=== PATIENT | female | born 1945 | race Caucasian/White ===

== ENCOUNTER 2016-06-27 09:22 | Day surgery (SDC) | payer MEDICARE ==
[2016-06-27] MEDS ORDERED: LACTATED RINGERS 1,000 ML IV ONE (10:07)
[2016-06-27] MEDS ORDERED: fentaNYL 250 MCG/5 ML VIAL IVP ONE (11:00)
[2016-06-27] MEDS ORDERED: MIDAZOLAM 2 MG/2 ML VIAL IVP ONE (11:00)
== END 2016-06-27 09:23 | disposition home or self-care (01) ==
PROC: 0DBP8ZZ Excision of Rectum, Via Natural or Artificial Opening Endoscopic (ICD-10-PCS; principal; 2016-06-27 10:30)
DX: Z12.11 Encounter for screening for malignant neoplasm of colon (principal); K62.1 Rectal polyp; K21.9 Gastro-esophageal reflux disease without esophagitis; I10 Essential (primary) hypertension
CPT/HCPCS: 45380; J3010; J7120

== ENCOUNTER 2018-09-09 09:03 | Outpatient (CLI) | payer MEDICARE ==
--- NOTE | 2018-09-09 11:00 | Mammography Report ---
Reason: SCREENING MAMMO Procedure Date: 09/09/2018 Accession Number: [id number] / [id number] Procedure: MGN - Screening Mammo Dig Bilat CPT Code: FULL RESULT: EXAM: Screening Mammo Dig Bilat DATE: 09/09/2018 9:33 AM CLINICAL HISTORY: TECHNIQUE: (B) - Bilateral CC and MLO views were obtained. COMPARISON: 02/29/2016, 08/26/2012 PARENCHYMAL PATTERN: (A) - The breasts demonstrate scattered fibroglandular densities bilaterally. FINDINGS: There is a left breast asymmetry, lateral hemisphere in middle one third, seen only on CC view. No focal abnormality in the right breast. IMPRESSION: Incomplete examination. BI-RADS category 0. RECOMMENDATION: (ADDMAM) - Recommend additional mammographic views. In addition, unilateral left breast ultrasound is recommended. BI-RADS CATEGORY: (0) - Incomplete Examination - need additional evaluation. STANDARD QUALIFYING STATEMENTS: 1. This examination was reviewed with the aid of Computer-Aided Detection (CAD). 2. A negative or benign imaging report should not preclude biopsy if clinically suspicious findings are present. 3. Dense breasts may obscure an underlying neoplasm. 4. This examination was reviewed without the aid of 3D breast imaging (tomosynthesis).
== END 2018-09-09 09:04 | disposition home or self-care (01) ==
LOC: DI.N 09:03
DX: Z12.31 Encounter for screening mammogram for malignant neoplasm of breast (principal); R92.8 Other abnormal and inconclusive findings on diagnostic imaging of breast
CPT/HCPCS: 77067

== ENCOUNTER 2018-09-17 10:28 | Outpatient (CLI) | payer MEDICARE ==
--- NOTE | 2018-09-17 13:21 | Mammography Report ---
Reason: ABNORMAL MAMMOGRAM Procedure Date: 09/17/2018 Accession Number: [id number] / [id number] Procedure: TODD - Diag Special Views Dig LT CPT Code: FULL RESULT: EXAM: Diag Special Views Dig LT DATE: 09/17/2018 10:57 AM CLINICAL HISTORY: Diagnostic examination. The patient is recalled from screening for a left breast asymmetry. TECHNIQUE: (L) - Left CC, laterally exaggerated CC, ML views were obtained. COMPARISON: 09/09/2018 through 08/15/2011. PARENCHYMAL PATTERN: (A) - The breast(s) demonstrate(s) scattered fibroglandular densities. FINDINGS: The previously seen asymmetry persists with suggestion of a isodense irregular mass on 3-D image 31 on the cc projection and 3-D image 28 on the MLO projection. Focused left breast ultrasound is performed. This demonstrates a cluster of simple appearing cysts in the left breast at the 2:00 position 6 cm from the nipple which measures 0.7 x 0.4 x 1.4 cm and corresponds to the mammographic findings, typically benign. There are no suspicious masses, calcifications, or areas of distortion. IMPRESSION: Benign findings. BI-RADS category 2. RECOMMENDATION: (ANNUAL) - Recommend routine annual screening mammography. BI-RADS CATEGORY: (2) - Benign Findings. STANDARD QUALIFYING STATEMENTS: 1. This examination was not reviewed with the aid of Computer-Aided Detection (CAD). 2. A negative or benign imaging report should not preclude biopsy if clinically suspicious findings are present. 3. Dense breasts may obscure an underlying neoplasm. 4. This examination was reviewed with the aid of 3D breast imaging (tomosynthesis).
== END 2018-09-17 10:29 | disposition home or self-care (01) ==
LOC: DI 10:28
PROVIDERS: ATTEND Internal Medicine
DX: N60.12 Diffuse cystic mastopathy of left breast (principal)
CPT/HCPCS: 76642